=== PATIENT | male | born 1935 | race Caucasian/White ===

== ENCOUNTER 2016-10-11 09:52 | Emergency (ER) | payer MEDICARE ==
[2016-10-11 11:04] LABS: ABSOLUTE NEUTROPHIL COUNT 4.6 K/mm3 (1.8-7.7); BASO # 0.1 K/mm3 (0.0-0.2); BASO % 0.8 % (0.2-1.0); EOS # 0.6 (0.0-0.5); EOS % 8.7 % (0.9-2.9); HEMATOCRIT 38.9 % (32.0-52.0); HEMOGLOBIN 13.5 gm/l (14.0-18.0); IMM NEUT% 0.4 % (0-1); LYMPH # 1.2 (1.0-4.8); LYMPH % 17.3 % (15-45); MEAN CELL VOLUME 93.7 fl (80.0-94.0); MEAN CORPUSCULAR HEMOGLOBIN 32.5 pg (27.0-31.0); MEAN CORPUSCULAR HGB CONC 34.7 g/dl (33.0-37.0); MEAN PLATELET VOLUME 10.1 fl (7.4-10.4); MONO # 0.6 (0.0-0.8); MONO % 8.7 % (4-12); NEUT % 64.1 % (43-75); PLATELET COUNT 199 K/mm3 (130-400); RED CELL DISTRIBUTION WIDTH 12.6 % (11.5-14.5)
[2016-10-11 11:18] LABS: TROPONIN I < 0.01 ng/ml (0.0-0.06)
[2016-10-11 11:20] LABS: ALB/GLOB RATIO 1.4 (>1.0); ALBUMIN 3.8 gm/dL (3.5-5.7); CALCIUM 8.8 mg/dL (8.6-10.3); MAGNESIUM 1.9 mg/dL (1.9-2.7)
[2016-10-11 11:22] LABS: CKMB ISOENZYME 4.7 ng/ml (0.6-6.3)
[2016-10-11] MEDS ORDERED: LACTATED RINGERS 1,000 ML ONE (11:52)
[2016-10-11 12:28] LABS: INR 1.86; PROTHROMBIN TIME 20.2 SECONDS (9.3-11.4)
== END 2016-10-11 13:07 | disposition home or self-care (01) ==
LOC: ED 09:52
DX: R55 Syncope and collapse (principal); I48.91 Unspecified atrial fibrillation; I10 Essential (primary) hypertension; Z79.01 Long term (current) use of anticoagulants
CPT/HCPCS: 85025; 82550; 82553; 80053; 83735; 85610; 84484; 99284; 96360; 93005; 99283; J7120